=== PATIENT | female | born 2000 | race Caucasian/White ===

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

== ENCOUNTER 2020-02-15 11:41 | Emergency (ER) | payer OTHER ==
[~2020-02-15] VITALS: Ht 167.6 cm; Wt 81.6 kg
[~2020-02-15 11:41] MED LIST changes: +PROMETHAZI6.25 MG/1 ORAL; +ZITHROMAX250 MG ORAL
--- NOTE | 2020-02-15 11:50 | NUR ---
ED Nurse Note: Patient walked into ED accompanied by mom c/o sore throat and fever for the past 3 days, patient states that she felt like shes had a fever on and off now for the past 3 days however states that she is unsure of her temp due to her not being able to take her temp. patient reports of feeling better after taking motrin. complains of sharp pain upon swallowing that she rates a 5/10 pain. states that she has not been tested for covid however reports of going out. patient placed in [facility]2
[2020-02-15 11:53] VITALS: BP 127/76
[2020-02-15] MEDS ORDERED: IBUPROFEN600 M1 ORAL (13:21)
[2020-02-15] MEDS ORDERED: AUGMENTIN 875-1 EAC1 ORAL (13:21)
--- NOTE | 2020-02-15 13:21 | Emergency Room Report ---
History of Present Illness General Chief Complaint: Sore Throat Source: Patient Present Illness HPI 19-year-old female with no symptom past medical history here complaining of 3 days of a 10 out of 10 sore throat, fever and chills. Denies any diarrhea, abdominal pain, nausea vomiting, cough and congestion, shortness of breath. 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 Denies any loss of taste and smell. Denies congestion, urinary symptoms. Has not taken medication other than Motrin for symptom relief. Vital signs are within normal limits. Denies coming in contact with someone who is positive for COVID. Allergies: Coded Allergies: No Known Allergies (Unverified , 09/08/12) COVID-19 Screening Contact w/high risk pt: No Experienced COVID-19 symptoms?: Yes COVID-19 Testing performed MANAGED CARE MANAGER: No Patient History Past Medical History: see triage record Past Surgical History: none Pertinent Family History: none Last Menstrual Period: currently on it Now: No Immunizations: UTD Reviewed Nursing Documentation: PMH: Agreed; PSxH: Agreed Nursing Documentation-PMH Past Medical History: No Stated History Hx Cardiac Problems: No Hx Gastrointestinal Problems: No Hx Neurological Problems: No Review of Systems All Other Systems: negative except mentioned in HPI Physical Exam Vital Signs Date Time Temp Pulse Resp B/P (MAP) Pulse Ox O2 Delivery O2 Flow Rate FiO2 02/15/20 11:48 99.9 110 18 127/76 (93) 97 Room Air Sp02 EP Interpretation: reviewed, normal General Appearance: no apparent distress, alert, GCS 15, non-toxic Head: normocephalic, atraumatic Eyes: bilateral eye normal inspection, bilateral eye PERRL ENT: TMs + canals normal, uvula midline, tonsillar swelling, pharyngeal erythema, tonsillar exudate Neck: full range of motion, supple/symm/no masses Respiratory: chest non-tender, lungs clear, normal breath sounds, no rhonchi, no wheezing, speaking full sentences Cardiovascular #1: regular rate, rhythm, no edema, no murmur Gastrointestinal: soft Genitourinary: no CVA tenderness Musculoskeletal: back normal Neurologic: alert, motor strength/tone normal, oriented x3, sensory intact, responsive, speech normal Psychiatric: judgement/insight normal, memory normal, mood/affect normal, no suicidal/homicidal ideation Skin: no rash Lymphatic: no adenopathy Medical Decision Making PA Attestation All my diagnosis and treatment plans were reviewed ad discussed with my supervising physician Dr. Camacho Diagnostic Impression: Primary Impression: Strep pharyngitis ER Course 19-year-old female with no symptom past medical history here complaining of 3 days of a 10 out of 10 sore throat, fever and chills. Denies any diarrhea, abdominal pain, nausea vomiting, cough and congestion, shortness of breath. 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 Denies any loss of taste and smell. Denies congestion, urinary symptoms. Has not taken medication other than Motrin for symptom relief. Vital signs are within normal limits. Denies coming in contact with someone who is positive for COVID. Ddx considered but are not limited to: strep pharyngitis, URI, tonsillitis, peritonsillar abscess, influneza, coronavirus Vital signs: are WNL, pt. is afebrile H&PE are most consistent with: Strep pharyngitis ORDERS: Augmentin, motrin ED INTERVENTIONS: None required at this time. Patient was evaluated in the context of the global COVID-19 pandemic, which necessitated consideration that the patient might be at risk for infection with the SARS-COV-2 virus that causes COVID-19. Institutional protocols and algorithms that pertain to the evaluation of patients at risk for COVID-19 are in a state of rapid change based on information relieved by multiple regulatory bodies including the CDC and the federal and state organizations. These policies and algorithms were followed during the patient's care in the ED. DISCHARGE: At this time pt. is stable for d/c to home. Will provide printed patient care instructions, and any necessary prescriptions. Care plan and follow up instructions have been discussed with the patient prior to discharge. 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 401. Patient to medication as directed, self isolate for 14 days, if worsening symptoms return to the emergency room Last Vital Signs Date Time Temp Pulse Resp B/P (MAP) Pulse Ox O2 Delivery O2 Flow Rate FiO2 02/15/20 11:53 99.9 110 18 127/76 97 Room Air Disposition: HOME, SELF-CARE Condition: Stable Scripts Ibuprofen* (MOTRIN*) 600 Mg Tablet 600 MG ORAL Q8H PRN for FOR PAIN, #20 TAB 0 Refills Prov: Jose Linder 02/15/20 Amoxicillin/Potassium Clav 875-125* (AUGMENTIN 875-125 TABLET*) 1 Each Tablet 1 TAB ORAL TWICE A DAY for 7 Days, #14 TAB Prov: Jose Linder 02/15/20 Referrals: NOT CHOSEN IPA/,REFERRING (PCP) Patient Instructions: Strep Throat Additional Instructions: Take medication as directed, follow-up with your primary care provider, stay home for 14 days, if worsening symptoms return to the emergency room Jose Linder Feb 15, 2020 13:21
[2020-02-15 13:30] VITALS: BP 125/78
--- NOTE | 2020-02-15 13:30 | NUR ---
ED Nurse Note: Pt cleared by health care Provider for discharge. DC instructions/prescription was given and explained to pt and verbalized understanding of teachings. All medical deviecs such as ID band removed. Pt is AAO x4, ambulatory and left with all personal belongings.
== END 2020-02-15 13:40 | disposition home or self-care (01) ==
LOC: EMR 12:43
DX: J02.0 Streptococcal pharyngitis (principal)
CPT/HCPCS: 99282